=== PATIENT | female | born 1985 | race African-American/Black ===

== ENCOUNTER 2017-03-05 21:27 | Emergency (ER) | payer OTHER ==
[~2017-03-05] VITALS: Ht 182.9 cm; Wt 101.4 kg
[2017-03-05 22:11] VITALS: BP 144/90
[2017-03-05] MEDS ORDERED: PERTUSS(ACELL),DIPH,TET VAC/PF 0.5 ML VIAL IM ONE (22:15)
[2017-03-05] MEDS ORDERED: MUPIROCIN CALCIUM 2% 22 GM OINTMENT TP ONE (22:15)
== END 2017-03-05 22:49 | disposition home or self-care (01) ==
LOC: EMS 21:30
DX: L08.9 Local infection of the skin and subcutaneous tissue, unspecified (principal); M79.89 Other specified soft tissue disorders; F17.210 Nicotine dependence, cigarettes, uncomplicated
CPT/HCPCS: 90471; 90715; 99283